=== PATIENT | male | born 1980 | race Caucasian/White ===

== ENCOUNTER 2020-03-30 02:02 | Emergency (ER) | payer SELFPAY ==
--- NOTE | 2020-03-30 02:32 | EDM.PDOC ---
ED HPI GENERAL MEDICAL PROBLEM - General Chief Complaint: Headache Stated Complaint: FELL ON LEFT EAR/MIGRAINE/DIZZY +3 DAYS AGO Time Seen by Provider: 03/30/20 02:31 - History of Present Illness INITIAL COMMENTS - FREE TEXT/NARRATIVE: 39-year-old male presents the emergency room with a migraine headache and some dizziness. 3 days ago the patient fell hit his left ear on a cooler. He had some numbness after this. At this time his hearing is entirely normal and the numbness is gone however he has a significant headache and this has not improved any. Patient has a history of migraines. He has some nausea and photophobia with this the dizziness is worse with the nausea. Patient denies any fevers or chills no cough congestion loss of taste or smell. He does have some photophobia which is normal for his headaches. Head Pain Score (Numeric/FACES): 10 - Related Data Allergies Allergy/AdvReac Type Severity Reaction Status Date / Time No Known Allergies Allergy Verified 03/30/20 02:15 Home Meds: Home Meds . [No Known Home Meds] 03/30/20 [History] Past Medical History - Past Health History Medical/Surgical History: Denies Medical/Surgical History Social & Family History - Tobacco Use Smoking Status *Q: Current Every Day Smoker Years of Tobacco use: 20 Packs/Tins Daily: 0.5 ED ROS GENERAL - Review of Systems Review Of Systems: See Below Constitutional: Reports: No Symptoms HEENT: Reports: Other (His hearing is back to normal but he continues to have some dizziness) Respiratory: Reports: No Symptoms Cardiovascular: Reports: No Symptoms Endocrine: Reports: No Symptoms GI/Abdominal: Reports: No Symptoms Musculoskeletal: Reports: No Symptoms, Other (No neck pain) Skin: Reports: No Symptoms Neurological: Reports: Dizziness, Headache Psychiatric: Reports: No Symptoms - Physical Exam Exam: See Below Exam Limited By: No Limitations General Appearance: Alert, No Apparent Distress Eye Exam: Bilateral Eye: EOMI, Normal Inspection, PERRL Ears: Normal External Exam, Normal Canal, Hearing Grossly Normal, Normal TMs Nose: Normal Inspection, Normal Mucosa, No Blood Throat/Mouth: Normal Inspection, Normal Lips, Normal Teeth, Normal Gums, Normal Oropharynx, Normal Voice, No Airway Compromise Head Exam: Atraumatic, Normocephalic Neck: Normal Inspection, Supple, Non-Tender, Full Range of Motion. No: Lymphadenopathy (L), Lymphadenopathy (R), Tender Lateral, Tender Midline Respiratory/Chest: No Respiratory Distress, Lungs Clear, Normal Breath Sounds Cardiovascular: Regular Rate, Rhythm, No Edema, No Murmur GI/Abdominal: Normal Bowel Sounds, Soft, Non-Tender Neuro Exam (Abbreviated): Other (Cranial nerves II through XII grossly intact all muscle groups in the upper extremities are equal and appropriate bilaterally deep tendon reflexes at the brachial radialis are equal and appropriate bilaterally. Cerebellar testing is within normal limits) Course - Vital Signs Last Recorded V/S: Last Vital Signs Temp 36.4 C 03/30/20 02:12 Pulse 82 03/30/20 02:12 Resp 16 03/30/20 02:12 BP 132/75 03/30/20 02:12 Pulse Ox 100 03/30/20 02:12 - Orders/Labs/Meds Orders: Active Orders 24 hr Category Date Time Status Head wo Cont [CT] Stat Exams 03/30/20 02:40 Taken Ketorolac [Toradol] Med 03/30/20 03:56 Once 15 mg IVPUSH ONETIME ONE Medication Orders Ketorolac Tromethamine (Toradol) 15 mg IVPUSH ONETIME ONE Stop: 03/30/20 03:57 Meds: Medications Generic Name Dose Route Start Last Admin Trade Name Freq PRN Reason Stop Dose Admin Ketorolac Tromethamine 15 mg 03/30/20 03:56 Toradol IVPUSH 03/30/20 03:57 ONETIME ONE Discontinued Medications Generic Name Dose Route Start Last Admin Trade Name Freq PRN Reason Stop Dose Admin Diphenhydramine HCl 50 mg 03/30/20 02:38 03/30/20 02:54 Benadryl IVPUSH 03/30/20 02:39 50 mg ONETIME ONE Administration Lactated Ringer's 1,000 mls @ 999 mls/hr 03/30/20 02:38 03/30/20 02:53 Ringers, Lactated IV 03/30/20 03:38 999 mls/hr .BOLUS ONE Administration Prochlorperazine Edisylate 10 mg 03/30/20 02:38 03/30/20 02:54 Compazine IVPUSH 03/30/20 02:39 10 mg ONETIME ONE Administration - Re-Assessments/Exams Free Text/Narrative Re-Assessment/Exam: 03/30/20 02:44 Patient has a persistent worsening headache with associated dizziness after a fall 3 days ago. He has a history of migraines we will treat like it some migraine however will check a CT with his persistent dizziness and headache after a fall. 03/30/20 03:[address] is unremarkable for acute change. The patient is doing much better but not quite 50% better I will give him 15 mg of IV Toradol while his IV finishes up and then anticipate discharging him home patient states he has a ride so he does not have to drive himself home. Departure - Departure Time of Disposition: 03:57 Disposition: Home, Self-Care 01 Clinical Impression: Head injury, Cephalgia - Discharge Information Referrals: PCP,None [Primary Care Provider] - Forms: ED Department Discharge Additional Instructions: Return to the emergency room with any questions problems or worsening symptoms. Go straight home and get some rest the best treatment for these headaches is to sleep them off. Follow-up in the hospital clinic this next week if needed and to establish care with a regular healthcare provider. [phone] Sepsis Event Note (ED) - Evaluation Sepsis Screening Result: No Definite Risk - Focused Exam Vital Signs: Vital Signs Temp Pulse Resp BP Pulse Ox 03/30/20 02:12 36.4 C 82 16 132/75 100 - My Orders Last 24 Hours: My Active Orders 03/30/20 02:40 Head wo Cont [CT] Stat 03/30/20 03:56 Ketorolac [Toradol] 15 mg IVPUSH ONETIME ONE - Assessment/Plan Last 24 Hours: My Active Orders 03/30/20 02:40 Head wo Cont [CT] Stat 03/30/20 03:56 Ketorolac [Toradol] 15 mg IVPUSH ONETIME ONE
[2020-03-30] MEDS ORDERED: Lactated Ringers 1,000 ML IV ONE (02:38)
[2020-03-30] MEDS ORDERED: Prochlorperazine 10 MG/2 ML SDV IVPUSH ONE (02:38)
[2020-03-30] MEDS ORDERED: diphenhydrAMINE 50 MG/ML SDV IVPUSH ONE (02:38)
[2020-03-30] MEDS ORDERED: Ketorolac 15 MG/ML SDV IVPUSH ONE (03:56)
--- NOTE | 2020-03-30 06:12 | CT ---
Head CT Technique: Multiple axial sections through the brain were obtained. Intravenous contrast was not utilized. Comparison: No prior intracranial imaging is available. Findings: Ventricles along with basal cisterns and sulci over the convexities are within normal limits for the patient's age. No abnormal parenchymal densities are seen. No evidence of intracranial hemorrhage. No midline shift or mass-effect is seen. Visualized mastoid sinuses and visualized paranasal sinuses showed nothing acute. No acute calvarial finding is seen. Impression: 1. Nothing acute is identified on noncontrast head CT study. Diagnostic code #1 This report was dictated in MDT I agree with preliminary report from [facility], finalized on 03/30/20, 4:47 AM Central Daylight Time
== END 2020-03-30 04:22 | disposition home or self-care (01) ==
LOC: JD.ED 02:02
DX: S09.90XA Unspecified injury of head, initial encounter (principal); M54.2 Cervicalgia; W22.8XXA Striking against or struck by other objects, initial encounter; F17.210 Nicotine dependence, cigarettes, uncomplicated
CPT/HCPCS: 70450; 96361; 96374; 96375; 99284; J0780; J1200; J1885; J7120; 99283